=== PATIENT | male | born 1940 | race Caucasian/White ===

== ENCOUNTER → 2018-04-29 | Outpatient (CLI) | payer MEDICARE, BC ==
[~2018-04-29] MED LIST: ASPIRIN 32325 MG/TAB PO; CEPHALEXIN500 M1 PO; COREG12.5 MG PO; EXCEDRIN1 TAB PO; LIPITOR 10MG10 MG PO; MULTIPLE VITAMI1 CAP PO; MYSOLINE 5050 MG/TAB PO; NIACIN250 M2 PO; NORVASC2.5 MG PO; OMEGA-3 FISH1000 MG PO; VITAMIN B COMPL1 SGL PO; VITAMIN C500 MG PO; ZEBETA 5MG5 MG PO
== END ==
LOC: COL.VAS 13:21
DX: I47.2 Ventricular tachycardia (principal); I34.0 Nonrheumatic mitral (valve) insufficiency; I07.1 Rheumatic tricuspid insufficiency; R79.89 Other specified abnormal findings of blood chemistry